=== PATIENT | female | born 1965 | race Two or more races ===

== ENCOUNTER → 2018-02-16 15:14 | Outpatient (CLI) | payer OTHER, SELFPAY ==
[2018-02-18 15:01] LABS: HPV Reflexed? NOT INDICATED
== END ==
PROVIDERS: Visit Provider Obstetrics & Gynecology
DX: Z12.4 Encounter for screening for malignant neoplasm of cervix (principal)
CPT/HCPCS: 88175; G0145

== ENCOUNTER → 2019-06-23 | Outpatient (CLI) | payer BC, SELFPAY ==
[2019-07-04 15:59] LABS: Age Gdln ACOG Testing 30-65
[2019-07-04 16:01] LABS: HPV APTIMA, High Risk Negative; HPV Reflexed? YES, CHARGE PATIENT
== END | disposition home or self-care (01) ==
LOC: LABSPEC 16:01
PROVIDERS: Visit Provider Obstetrics & Gynecology
DX: Z12.4 Encounter for screening for malignant neoplasm of cervix (principal)
CPT/HCPCS: 87624; 88175; G0145